=== PATIENT | female | born 1990 | race Hispanic/Latino ===

== ENCOUNTER 2018-02-26 22:53 | Emergency (ER) | payer OTHER ==
[2018-02-26 22:58] VITALS: BP 119/84; PULSE 87; RESP 16; TEMP 97.5; O2SAT 100
--- NOTE | 2018-02-26 23:28 | ED PDOC ---
HPI: Psych/Substance Abuse Time Seen by Provider: 02/26/18 23:04 Chief Complaint (Nursing): Alcohol Ingestion Chief Complaint (Provider): ETOH use History Per: EMS History/Exam Limitations: intoxication Additional Complaint(s): 27yo female, no known past medical history, brought to ER by EMS after patient was [place] with [place] un[place] the [place] Patient was stopped by [place] transit and brought to ER by [facility]. Patient does admit to alcohol use but denies any medical complaints. She currently declines any medical treatments. Past Medical History Reviewed: Historical Data, Nursing Documentation, Vital Signs Vital Signs: Last Vital Signs Temp 97.5 F L 02/26/18 22:55 Pulse 87 02/26/18 22:55 Resp 16 02/26/18 22:55 BP 119/84 02/26/18 22:55 Pulse Ox 100 02/26/18 22:55 - Medical History PMH: No Chronic Diseases - Surgical History Surgical History: No Surg Hx - Family History Family History: States: No Known Family Hx - Allergies Allergies/Adverse Reactions: Allergies Allergy/AdvReac Type Severity Reaction Status Date / Time No Known Allergies Allergy Verified 02/26/18 22:55 Review of Systems ROS Statement: Except As Marked, All Systems Reviewed And Found Negative Physical Exam - Reviewed Nursing Documentation Reviewed: Yes Vital Signs Reviewed: Yes - Physical Exam Comments: Patient declined physical exam. - ECG O2 Sat by Pulse Oximetry: 100 (RA) Pulse Ox Interpretation: Normal Medical Decision Making Medical Decision Making: Impression: 27yo female with alcohol use Plan: -- Patient's sober friend is present at bedside (traveled an hour to picker and sorter load and unload patient). Patient declined any medical treatment. Patient to be discharged home with her sober friend. Scribe Attestation: Documented by Brenda Mcdaniel acting as a scribe for Freedom Wooten MD. Provider Attestation: All medical record entries made by the Scribe were at my direction and personally dictated by me. I have reviewed the chart and agree that the record accurately reflects my personal performance of the history, physical exam, medical decision making, and the department course for this patient. I have also personally directed, reviewed, and agree with the discharge instructions and disposition. Disposition - Clinical Impression Clinical Impression: Alcohol use - Disposition Disposition: Routine/Home (accompanied by sober friend) Disposition Time: 23:20 Condition: STABLE Forms: [facility] ([place])
== END 2018-02-26 23:30 | disposition home or self-care (01) ==
LOC: H.ER 22:53
DX: F10.10 Alcohol abuse, uncomplicated (principal)